=== PATIENT | male | born 1980 | race Caucasian/White ===

== ENCOUNTER 2019-03-26 12:33 | Emergency (ER) | payer MEDICAID | END 2019-03-26 14:33 | disposition home or self-care (01) | LOC: FTE 12:33 | DX: S91.342A Puncture wound with foreign body, left foot, initial encounter (principal); W45.8XXA Other foreign body or object entering through skin, initial encounter; Y92.009 Unspecified place in unspecified non-institutional (private) residence as the place of occurrence of the external cause | CPT/HCPCS: 73630; 73630-LT; 99283-25 ==